=== PATIENT | female | born 1990 | race African-American/Black ===

== ENCOUNTER 2021-10-14 15:08 | Emergency (ER) | payer OTHER ==
[~2021-10-14] VITALS: Ht 160 cm; Wt 117.5 kg
[2021-10-14 15:21] VITALS: TEMP 98.2
[2021-10-14 15:47] LABS: PLATELET COUNT 305 K/uL (152-353)
[2021-10-14 15:56] LABS: POTASSIUM 3.7 mmol/L (3.6-5.2)
[2021-10-14 18:10] VITALS: BP 130/74
== END 2021-10-14 18:10 | disposition home or self-care (01) ==
LOC: ED 15:08
PROVIDERS: Hospitalist
DX: N92.1 Excessive and frequent menstruation with irregular cycle (principal); D63.8 Anemia in other chronic diseases classified elsewhere
CPT/HCPCS: 36415; 80053; 81000; 81025; 85027; 85610; 85730; 96360; 99284